=== PATIENT | male | born 1980 | race Caucasian/White ===

== ENCOUNTER → 2017-03-16 | Outpatient (CLI) | payer BC, OTHER ==
--- NOTE | 2017-03-16 13:21 | REP ---
Right ankle four views : There is no fracture or dislocation. Mineralization and joint spaces are normal. There are no calcifications or foreign bodies. Impression: Negative right ankle . Signed by Bon Louise MD 03/16/2017 10:48 A
== END ==
LOC: M ADAMS 09:21
PROVIDERS: ATTEND Physician Assistant
DX: S90.01XA Contusion of right ankle, initial encounter (principal); X58.XXXA Exposure to other specified factors, initial encounter; Y92.9 Unspecified place or not applicable; Y93.9 Activity, unspecified; Y99.9 Unspecified external cause status

== ENCOUNTER 2017-09-05 10:19 | Emergency (ER) | payer OTHER, BC | END 2017-09-05 11:30 | disposition home or self-care (01) | LOC: M ED 10:19 | DX: J70.5 Respiratory conditions due to smoke inhalation (principal); Z77.098 Contact with and (suspected) exposure to other hazardous, chiefly nonmedicinal, chemicals | CPT/HCPCS: 99283 ==

== ENCOUNTER → 2018-08-22 | Outpatient (REF) | payer OTHER | LOC: M SFHCADAM 07:55 | PROVIDERS: ATTEND Physician Assistant | DX: E78.5 Hyperlipidemia, unspecified (principal); Z53.9 Procedure and treatment not carried out, unspecified reason ==

== ENCOUNTER → 2019-01-01 | Outpatient (REF) | payer OTHER | LOC: M SFHCADAM 08:48 | PROVIDERS: ATTEND Physician Assistant | DX: E78.6 Lipoprotein deficiency (principal) ==

== ENCOUNTER → 2019-10-28 | Outpatient (CLI) | payer BC, OTHER | LOC: M LABSMTC 10:59 | PROVIDERS: ATTEND Family Medicine | DX: Z11.59 Encounter for screening for other viral diseases (principal); Z20.828 Contact with and (suspected) exposure to other viral communicable diseases ==

== ENCOUNTER → 2021-03-26 | Outpatient (REF) | payer OTHER ==
[2021-03-26 13:19] LABS: ALT/SGPT 26 U/L (12-78); BILIRUBIN,TOTAL 0.5 MG/DL (0.2-1.0); BLOOD UREA NITROGEN 22 MG/DL (7-18); CARBON DIOXIDE LEVEL 30 MEQ/L (21-32); CHLORIDE LEVEL 107 MEQ/L (98-107); CREATININE FOR GFR 0.99 MG/DL (0.70-1.30); GLOMERULAR FILTRATION RATE > 60.0 (>60); GLUCOSE, FASTING 96 MG/DL (70-100); SODIUM LEVEL 141 MEQ/L (136-145)
[2021-03-26 13:20] LABS: ALBUMIN 3.9 GM/DL (3.2-5.2); CHOLESTEROL LEVEL 255 MG/DL (<200); CHOLESTEROL RISK RATIO 4.553 (<5); HDL CHOLESTEROL 56 MG/DL (>40); LDL CHOLESTEROL 189 MG/DL (<100); NON-HDL-C 199 MG/DL; TOTAL PROTEIN 6.6 GM/DL (6.4-8.2); TRIGLYCERIDES LEVEL 49 MG/DL (<150)
== END ==
LOC: M SFHCADAM 07:44
PROVIDERS: ATTEND Physician Assistant
DX: Z00.00 Encounter for general adult medical examination without abnormal findings (principal); E78.6 Lipoprotein deficiency

== ENCOUNTER → 2023-11-27 | Outpatient (CLI) | payer BC | LOC: M RAD 15:11 | PROVIDERS: ATTEND Chiropractor | DX: M54.40 Lumbago with sciatica, unspecified side (principal) ==

== ENCOUNTER 2025-06-17 08:16 | Emergency (ER) | payer BC ==
[~2025-06-17] VITALS: Ht 167.6 cm; Wt 80.9 kg
[2025-06-17 08:17] VITALS: BP 155/86; TEMP 97.6; O2SAT 99
[2025-06-17] MEDS ORDERED: TADA5TAB2 (08:24)
[2025-06-17] MEDS ORDERED: CEPH500C PO (09:50)
== END 2025-06-17 09:55 | disposition home or self-care (01) ==
LOC: M ED 08:16
DX: S61.301A Unspecified open wound of left index finger with damage to nail, initial encounter (principal); Y92.019 Unspecified place in single-family (private) house as the place of occurrence of the external cause; Y93.9 Activity, unspecified; Y99.9 Unspecified external cause status; W26.0XXA Contact with knife, initial encounter; Z79.2 Long term (current) use of antibiotics